=== PATIENT | male | born 1950 | race African-American/Black ===

== ENCOUNTER 2016-06-01 20:58 | Observation (INO) | payer MEDICARE ==
[~2016-06-01 20:58] MED LIST: AMIO200 PO; ASPI81TA82 PO; ENAL10TA7 PO; GLUCTAB PO; METO50TA PO; PLAV75TA PO; SIMV5TAB3 PO
[2016-06-01 21:00] VITALS: BP 122/65; PULSE 66; PULSE 67; RESP 16; RESP 18; TEMP 97.7; O2SAT 100
[2016-06-01] MEDS ORDERED: SODIUM CHLORIDE 0.9% FLUSH 5 ML FLUSH IVF PRN (21:15)
--- NOTE | 2016-06-01 21:21 | PD ---
HPI Chief Complaint: AICD Discharge Time Seen by Provider: 21:04 Travel History International Travel<30 days: No Contact w/Intl Traveler<30days: No History of Present Illness HPI Patient is 66 years old and arrives to the ER after his AICD defibrillated while he was sitting on his couch just prior to ER arrival. He did experience some lightheadedness for a few seconds prior to defibrillation. Since the defibrillation he has had no complaint. He felt one discharged. Today was a normal day for the patient without excessive exercise/exertion. No shortness of breath or cough or fever reported. He has a history of catheterization August 2015 when drug-eluting stents were placed in the LAD by Dr. Malik. Pt ferrell has a Medtronic AICD which was last interrogated here about 9 months prior when of ventricular tachycardia with rate of 240 was observed. PFSH Past Medical History Hx Anticoagulant Therapy: Yes (Plavix) Arthritis: No Heart Rhythm Problems: Yes Cancer: No Cardiac Catheterization: Yes (STENT X2) Cardiovascular Problems: Yes (OK 2002) High Cholesterol: Yes Chemotherapy: No Chest Pain: No Congestive Heart Failure: No Cerebrovascular Accident: No Diabetes: Yes Endocrine: No Gastrointestinal Disorders: No Genitourinary: No Hypertension: Yes Immune Disorder: No Implanted Vascular Access Dvce: Yes Musculoskeletal: No Neurologic: No Psychiatric: No Reproductive: Yes (penile implant) Respiratory: No Myocardial Infarction: Yes (STENT X 2) Past Surgical History Abdominal Surgery: No AICD: Yes Arteriovenous Shunt: No Cardiac Surgery: Yes (DEFIBRILLATOR, STENTS) Ear Surgery: No Endocrine Surgery: No Eye Surgery: No Genitourinary Surgery: Yes (penis implant) Gynecologic Surgery: No Insulin Pump: No Joint Replacement: No Neurologic Surgery: No Oral Surgery: No Pacemaker: Yes Thoracic Surgery: No Other Surgery: Yes (PENILE IMPLANT) Social History Alcohol Use: No Tobacco Use: No Substance Use: No Allergies-Medications (Allergen,Severity, Reaction): Coded Allergies: No Known Allergies (Unverified , 06/01/16) Reported Meds & Prescriptions Reported Meds & Active Scripts Active Review of Systems Except as stated in HPI: all other systems reviewed are Neg Physical Exam Narrative GENERAL: 66 yo M, WNWD, NAD SKIN: Warm and dry. HEAD: Atraumatic. Normocephalic. EYES: Pupils equal and round. No scleral icterus. No injection or drainage. ENT: No nasal bleeding or discharge. Mucous membranes pink and moist. NECK: Trachea midline. No JVD. CARDIOVASCULAR: Irregular. HR approx 72. RESPIRATORY: No accessory muscle use. Clear to auscultation. Breath sounds equal bilaterally. GASTROINTESTINAL: Abdomen soft, non-tender, nondistended. Hepatic and splenic margins not palpable. MUSCULOSKELETAL: Extremities without clubbing, cyanosis, or edema. No obvious deformities. NEUROLOGICAL: Awake and alert. No obvious cranial nerve deficits. Motor grossly within normal limits. Five out of 5 muscle strength in the arms and legs. Normal speech. PSYCHIATRIC: Appropriate mood and affect; insight and judgment normal. Data Data Last Documented VS Vital Signs Date Time Temp Pulse Resp B/P Pulse Ox O2 Delivery O2 Flow Rate FiO2 06/01/16 21:00 97.7 66 18 122/65 100 06/01/16 21:00 Room Air Orders Electrocardiogram (06/01/16 21:04) Basic Metabolic Panel (Bmp) (06/01/16 21:04) Ckmb (Isoenzyme) Profile (06/01/16 21:04) Complete Blood Count With Diff (06/01/16 21:04) Magnesium (Mg) (06/01/16 21:04) Prothrombin Time / Inr (Pt) (06/01/16 21:04) Act Partial Throm Time (Ptt) (06/01/16 21:04) Troponin I (06/01/16 21:04) Ecg Monitoring (06/01/16 21:04) Bilateral Bp Monitoring (06/01/16 21:04) Iv Access Insert/Monitor (06/01/16 21:04) Oximetry (06/01/16 21:04) Oxygen Administration (06/01/16 21:04) Sodium Chloride 0.9% Flush (Ns Flush) (06/01/16 21:15) CKMB (06/01/16 21:15) CKMB% (06/01/16 21:15) Admit Order (Ed Use Only) (06/01/16 23:44) Labs Laboratory Tests Test 06/01/16 21:15 White Blood Count 8.0 TH/MM3 Red Blood Count 4.70 MIL/MM3 Hemoglobin 13.7 GM/DL Hematocrit 41.8 % Mean Corpuscular Volume 89.0 FL Mean Corpuscular Hemoglobin 29.1 PG Mean Corpuscular Hemoglobin 32.7 % Concent Red Cell Distribution Width 13.9 % Platelet Count 194 TH/MM3 Mean Platelet Volume 8.8 FL Neutrophils (%) (Auto) 56.8 % Lymphocytes (%) (Auto) 29.4 % Monocytes (%) (Auto) 11.1 % Eosinophils (%) (Auto) 2.1 % Basophils (%) (Auto) 0.6 % Neutrophils # (Auto) 4.6 TH/MM3 Lymphocytes # (Auto) 2.4 TH/MM3 Monocytes # (Auto) 0.9 TH/MM3 Eosinophils # (Auto) 0.2 TH/MM3 Basophils # (Auto) 0.0 TH/MM3 CBC Comment DIFF FINAL Differential Comment Prothrombin Time 11.1 SEC Prothromb Time International 1.0 RATIO Ratio Activated Partial 29.9 SEC Thromboplast Time Sodium Level 140 MEQ/L Potassium Level 4.0 MEQ/L Chloride Level 105 MEQ/L Carbon Dioxide Level 27.6 MEQ/L Anion Gap 7 MEQ/L Blood Urea Nitrogen 13 MG/DL Creatinine 1.36 MG/DL Estimat Glomerular Filtration 63 ML/MIN Rate Random Glucose 114 MG/DL Calcium Level 8.2 MG/DL Magnesium Level 2.1 MG/DL Total Creatine Kinase 120 U/L Creatine Kinase MB 1.9 NG/ML Troponin I LESS THAN 0.02 NG/ML MDM Medical Decision Making Medical Screen Exam Complete: Yes Emergency Medical Condition: Yes Medical Record Reviewed: Yes Differential Diagnosis NSTEMI, unstable angina, coronary vasospasm, PE, PTX, aortic dissection, pericarditis, myocarditis, endocarditis, PNA, esophageal disease, aneurysm, musculoskeletal etiologies, anxiety, cocaine/sympathomimetic abuse Narrative Course CBC & BMP Diagram 06/01/16 21:15 Tn < 0.02 Magnesium 2.1 Coags 11.1 / 1.0 / 29.9 EK, electronic atrial PM, q waves V1-V6/III A Medtronic isotope technician perform the interrogation and we can see ventricular tachycardia at a rate of 270 twice in the last few weeks including tonight. The case was discussed with Dr. Olson of cardiology and the patient will be admitted for further evaluation. He did have a brief episode of ventricular tachycardia in the ER lasting a couple seconds and no defibrillation occurred. Discussed with Dr. Waggoner for [facility]. Diagnosis Primary Impression: AICD discharge Admitting Information Admitting Physician Requests: Observation Amarjit Olson MD Jun 01, 2016 21:21
[2016-06-01 21:28] LABS: AUTOMATED NEUTROPHIL # 4.6 TH/MM3 (1.8-7.7); BASOPHIL % 0.6 % (0.0-2.0); EOSINOPHIL # 0.2 TH/MM3 (0-0.4); EOSINOPHIL % 2.1 % (0.0-4.0); HEMATOCRIT 41.8 % (39.0-51.0); HEMO FLAGS DIFF FINAL; LYMPH % 29.4 % (9.0-44.0); LYMPHOCYTE # 2.4 TH/MM3 (1.0-4.8); MEAN CORPUSCULAR HEMOGLOBIN 29.1 PG (27.0-34.0); MEAN CORPUSCULAR HGB CONC 32.7 % (32.0-36.0); MONO % 11.1 % (0.0-8.0); NEUT % 56.8 % (16.0-70.0); PLATELET COUNT 194 TH/MM3 (150-450); RED CELL DISTRIBUTION WIDTH 13.9 % (11.6-17.2)
[2016-06-01 21:39] LABS: APTT (PATIENT) 29.9 SEC (24.3-30.1); PROTHROMBIN TIME - PATIENT 11.1 SEC (9.8-11.6)
[2016-06-01 21:59] LABS: ANION GAP 7 MEQ/L (5-15); BICARBONATE 27.6 MEQ/L (21.0-32.0); BLOOD UREA NITROGEN 13 MG/DL (7-18); CHLORIDE 105 MEQ/L (98-107); CREATINE KINASE 120 U/L (39-308); GLOMERULAR FILTRATION RATE 63 ML/MIN (>89); MAGNESIUM 2.1 MG/DL (1.5-2.5); SODIUM (NA) 140 MEQ/L (136-145)
[2016-06-01 22:12] LABS: CKMB 1.9 NG/ML (0.5-3.6)
--- NOTE | 2016-06-01 23:57 | HHI.HP ---
[facility] Service [facility] Primary Care Physician JEREMY Mensah Admission Diagnosis VTach/AICD Defibrillation Diagnoses: (1) AICD discharge Diagnosis: Principal (2) JONNY (acute kidney injury) Diagnosis: Principal (3) HTN (hypertension) Diagnosis: Principal (4) DM (diabetes mellitus) Diagnosis: Principal Travel History International Travel<30 Days: No Contact w/Intl Traveler <30 Da: No Traveled to Known Affected Are: No History of Present Illness This is a 66-year-old male with a PMH of HTN, CAD, CHF (EF 20%) s/p AICD ( Medtronic) and DM who came to the ER after AICD fired x1. Per , they had gotten home from dinner, pt fell asleep on the couch and after approx 20min woke up w/ AICD firing x1. Denies chest pain or SOB. Similar episode in 2015 for which he was admitted, s/p Cardiac Cath 08/27/15 w/ DE Stent x2 to LAD. states had episode of AICD firing in November as well. On arrival, BP 122/65 , HR 66, O2 sat 100% on RA, Afebrile. CBC unremarkable. Creatinine 1.36, previously 0.99 on 10/15/15. Troponin negative. AICD Interrogated by [employer] while in ER, s/p AICD firing x1. Dr. Olson consulted by ER physician, recommended admission for observation. Follows w/ Dr. Malik as outpatient, had medications adjusted and was referred to a specialist in [place]. Have appt w/ Dr. Almeida in [place] tomorrow morning at 10:30am. Pt reluctant to be admitted as he has appt tomorrow. Review of Systems Other ROS: 14 point review of systems otherwise negative. Past Family Social History Past Medical History PMH: HTN, CAD, CHF (EF 20%) s/p AICD (Medtronic) and DM Past Surgical History PAST SURGICAL HISTORY: AICD, Cardiac Stent, Penile Implant Allergies: Coded Allergies: No Known Allergies (Unverified , 06/01/16) Family History PAST FAMILY HISTORY: Reviewed. No h/o DM or CAD Social History PAST SOCIAL HISTORY: Negative for alcohol, tobacco or drugs. Physical Exam Vital Signs Vital Signs Date Time Temp Pulse Resp B/P Pulse Ox O2 Delivery O2 Flow Rate FiO2 06/01/16 21:00 97.7 66 18 122/65 100 06/01/16 21:00 67 16 100 Room Air 06/01/16 21:00 100 Room Air 06/01/16 21:00 67 16 100 Room Air Physical Exam PE: GENERAL: Middle-aged black male in no acute distress. at bedside. HEENT: PERRLA, EOMI. No scleral icterus or conjunctival pallor. No lid lag or facial droop. CARDIOVASCULAR: Regular rate and rhythm. No obvious murmurs to auscultation. No chest tenderness to palpation. RESPIRATORY: No obvious rhonchi or wheezing. Clear to auscultation. Breath sounds equal bilaterally. GASTROINTESTINAL: Abdomen soft, non-tender, nondistended. BS normal. MUSCULOSKELETAL: Extremities without clubbing, cyanosis, or edema. No obvious deformities. NEUROLOGICAL: Awake, alert and oriented x4. No focal neurologic deficits. Moving both upper and lower extremities spontaneously. Laboratory Laboratory Tests Test 06/01/16 21:15 White Blood Count 8.0 Red Blood Count 4.70 Hemoglobin 13.7 Hematocrit 41.8 Mean Corpuscular Volume 89.0 Mean Corpuscular Hemoglobin 29.1 Mean Corpuscular Hemoglobin 32.7 Concent Red Cell Distribution Width 13.9 Platelet Count 194 Mean Platelet Volume 8.8 Neutrophils (%) (Auto) 56.8 Lymphocytes (%) (Auto) 29.4 Monocytes (%) (Auto) 11.1 Eosinophils (%) (Auto) 2.1 Basophils (%) (Auto) 0.6 Neutrophils # (Auto) 4.6 Lymphocytes # (Auto) 2.4 Monocytes # (Auto) 0.9 Eosinophils # (Auto) 0.2 Basophils # (Auto) 0.0 CBC Comment DIFF FINAL Differential Comment Prothrombin Time 11.1 Prothromb Time International 1.0 Ratio Activated Partial 29.9 Thromboplast Time Sodium Level 140 Potassium Level 4.0 Chloride Level 105 Carbon Dioxide Level 27.6 Anion Gap 7 Blood Urea Nitrogen 13 Creatinine 1.36 Estimat Glomerular Filtration 63 Rate Random Glucose 114 Calcium Level 8.2 Magnesium Level 2.1 Total Creatine Kinase 120 Creatine Kinase MB 1.9 Troponin I LESS THAN 0.02 Result Diagram: 06/01/16211406/01/162114 Assessment and Plan Problem List: (1) AICD discharge ICD Code: Z45.02 Status: Acute (2) JONNY (acute kidney injury) ICD Code: N17.9 Status: Acute (3) HTN (hypertension) ICD Code: I10 Status: Acute (4) DM (diabetes mellitus) ICD Code: E11.9 Status: Acute Assessment and Plan A/P: 1. AICD Discharge: s/p firing x1 tonight, s/p AICD Interrogation by [employer] confirming discharge. Follows w/ Dr. Malik as outpatient, pt states medications were adjusted and pt referred to [place] for eval w/ specialist. Have appt w/ Dr. Almeida in [place] tomorrow morning at 10:30. Pt reluctant to be admitted as he doesn't want to miss appt. Will admit for Observation, place on telemetry, check serial enzymes to eval for possible ischemia. Consult Dr. Malik for further recommendations. Resume home Metoprolol 100mg bid, Enalapril 5mg bid and Amiodarone 200mg qd. 2. JONNY: Creatinine 1.36, previously 0.99 on 10/15/15. IVF, repeat labs in am. 3. DM: Sliding scale w/ Accu-checks. 4. HTN: Controlled. Resume home Metoprolol/Enalapril. 5. DVT Prophylaxis: SCD/Teds. 6. Social work for d/c planning as needed. 7. Case discussed w/ ER physician at length. Jennifer Waggoner MD Jun 01, 2016 23:57
[2016-06-02] MEDS ORDERED: ASPIRIN EC 81 MG TABEC PO ONE (00:15)
[2016-06-02] MEDS ORDERED: ONDANSETRON HCL 4 MG/2 ML VIAL IVP PRN (00:15)
[2016-06-02] MEDS ORDERED: SODIUM CHLORIDE 0.9% FLUSH 5 ML FLUSH FLUSH PRN (00:15)
[2016-06-02] MEDS ORDERED: ACETAMINOPHEN/HYDROcodone 325 MG/5 MG TAB PO PRN (00:15)
[2016-06-02] MEDS ORDERED: METOPROLOL TARTRATE 100 MG TAB PO SCH (00:15)
[2016-06-02] MEDS ORDERED: GLUCAGON 1 MG/ML VIAL OTHER PRN (00:15)
[2016-06-02] MEDS ORDERED: ACETAMINOPHEN 325 MG TAB PO PRN (00:15)
[2016-06-02] MEDS ORDERED: BISACODYL 10 MG SUPP PR PRN (00:15)
[2016-06-02] MEDS ORDERED: DEXTROSE 50% IN WATER 50 ML VIAL(D50) IV PUSH PRN (00:15)
[2016-06-02] MEDS ORDERED: MORPHINE SULFATE 4 MG/ML INJ IV PRN (00:15)
[2016-06-02 00:53] VITALS: BP 117/63; PULSE 67; RESP 16; O2SAT 100
[2016-06-02] MEDS ORDERED: CLOP75TA PO (01:41)
[2016-06-02] MEDS ORDERED: ENAL5TAB PO (01:41)
[2016-06-02] MEDS ORDERED: METF500T PO (01:41)
[2016-06-02] MEDS ORDERED: METO100T PO (01:41)
[2016-06-02] MEDS ORDERED: AMIO200T PO (01:41)
[2016-06-02] MEDS: AMIODARONE 200 MG TAB PO SCH ×3 (02:01→21:43)
[2016-06-02] MEDS: SODIUM CHLOR 0.9% 1000 ML INJ 1,000 ML IV SCH ×3 (02:01→21:45)
[2016-06-02] MEDS: ENALAPRIL MALEATE 5 MG TAB PO SCH ×3 (02:02→21:43)
[2016-06-02 04:52] VITALS: BP 132/84; PULSE 59; RESP 16; O2SAT 99
[2016-06-02] MEDS: INSULIN ASPART SUPPLEMENTAL SCALE SQ SCH ×4 (07:00→21:00)
[2016-06-02] MEDS: METOPROLOL TARTRATE 100 MG TAB PO SCH ×2 (10:43→21:43)
[2016-06-02] MEDS: SODIUM CHLORIDE 0.9% FLUSH 5 ML FLUSH FLUSH SCH ×2 (10:44→21:00)
[2016-06-02 13:00] VITALS: BP 145/88; PULSE 61; RESP 18; TEMP 95.9; O2SAT 97
[2016-06-02 13:18] VITALS: PULSE 58
[2016-06-02 16:07] VITALS: BP 118/67; PULSE 60; RESP 18; TEMP 96; O2SAT 98
--- NOTE | 2016-06-02 17:19 | EKG ---
Date Performed: 06/01/2016 Time Performed: 21:03:29 PTAGE: 66 years EKG: ELECTRONIC ATRIAL PACEMAKER POSSIBLE ANTERIOR MYOCARDIAL INFARCTION Compared to prior emmy ng no significant change ABNORMAL RHYTHM ECG PREVIOUS TRACING 10/13/15 @16.30.42 DOCTOR: Chad Espinoza Interpretating Date/Time 06/02/2016 17:18:16
--- NOTE | 2016-06-02 18:59 | HHI.PR ---
Subjective Remarks going to the bathroom=- no chest pains or shortness of breath- d/w to pace himself telemetry- sinus patient states came here last evening at around 11 pm- fired x 1 while he was just resting no chest pain, SOB,Nausea or vomtiing Objective Vitals Vital Signs Date Time Temp Pulse Resp B/P Pulse Ox O2 Delivery O2 Flow Rate FiO2 06/02/16 16:07 96.0 60 18 118/67 98 06/02/16 13:18 58 06/02/16 13:00 95.9 61 18 145/88 97 06/02/16 04:52 59 16 132/84 99 Room Air 06/02/16 00:53 67 16 117/63 100 Room Air 06/01/16 21:00 97.7 66 18 122/65 100 06/01/16 21:00 67 16 100 Room Air 06/01/16 21:00 100 Room Air 06/01/16 21:00 67 16 100 Room Air I/O 06/01/16 06/01/16 06/01/16 06/02/16 06/02/16 06/02/16 07:00 15:00 23:00 07:00 15:00 23:00 Intake Total 200 ml Balance 200 ml Intake IV Total 200 ml Result Diagram: 06/01/16211406/01/162114 Objective Remarks awake, alert, oriented x 3 anicteric l;ungs clear, no rales or wheezes regular rhythm HR 62 abdomen soft, extremities no edema A/P Problem List: (1) AICD discharge ICD Code: Z45.02 Status: Acute (2) JONNY (acute kidney injury) ICD Code: N17.9 Status: Acute (3) HTN (hypertension) ICD Code: I10 Status: Acute (4) DM (diabetes mellitus) ICD Code: E11.9 Status: Acute Assessment and Plan A/P: 1. AICD Discharge: s/p firing x1 06/01. History of cardiomyopathy s/p AICD Interrogation by [employer] confirming discharge. Resume home Metoprolol 100mg bid, Enalapril 5mg bid and Amiodarone 200mg qd. Patient was seen today by Dr. Rowe - further course of work up per Dr. Rowe. Restart his Plavix. 2. JONNY: Creatinine 1.36, previously 0.99 on 10/15/15. IVF gentle hydration decreased IVF rate with history of CMP. repeat labs in am. 3. DM: Sliding scale w/ Accu-checks. Hold Metformin with elevated creatinine. check hemoglobin A1C in am 4. HTN: Controlled. Resume home Metoprolol/Enalapril. 5. DVT Prophylaxis: SCD/Teds. 6. Social work for d/c planning as needed. 7. Case discussed and patient at bedside Heparin SQ for DVT prophylaxis Dylan Li MD Jun 02, 2016 18:59 Dylan Li MD Jun 02, 2016 18:59
[2016-06-02 21:14] VITALS: BP 140/78; PULSE 62; RESP 20; TEMP 98.3; O2SAT 100
[2016-06-03 00:03] VITALS: BP 131/75; PULSE 62; RESP 20; TEMP 97.8; O2SAT 95
[2016-06-03 01:41] VITALS: PULSE 59
[2016-06-03 04:08] VITALS: BP 138/86; PULSE 59; RESP 20; TEMP 97.8; O2SAT 95
[2016-06-03] MEDS: INSULIN ASPART SUPPLEMENTAL SCALE SQ SCH (06:31)
--- NOTE | 2016-06-03 07:49 | MB ---
cc: SOTERO LEDBETTER HANSCY M.D. WILSON, VANCE E. M.D. DATE OF CONSULTATION 06/02/2016 REASON FOR CONSULTATION Ventricular tachycardia. HISTORY OF PRESENT ILLNESS Mr. Gutierrez is a 66-year-old -Spanish gentleman with history of high blood pressure, coronary artery disease, previous PTCA plus stent that was in August 10, 2015, that was the last one, previous defibrillatory shock in November. The gentleman was admitted due to defibrillatory shock. He was evaluated. Medication was modified and subsequently yesterday night was at home and felt dizzy and came to the emergency room. Defibrillatory shock due to ventricular tachycardia recorded. The patient has had two or three episodes. There was an early episode around May 19 that the patient does not really remember at this point. I was consulted for further evaluation and management. The chart was reviewed. The patient was evaluated. ALLERGIES None. SOCIAL HISTORY Negative for smoking and drinking. FAMILY HISTORY Noncontributory to his current medical management. MEDICATIONS The patient currently is on - 1. Metoprolol 100 mg twice a day. 2. He is on enalapril 5 mg twice a day. 3. He is on amiodarone 200 mg twice a day. REVIEW OF SYSTEMS Currently he refers no chest pain, no chest discomfort, no vomiting, no fever. PHYSICAL EXAMINATION General: Alert, fully oriented. Vital Signs: His blood pressure is 118/67, pulse 60, respiratory 18. Lungs: Ventilated. Cardiovascular: S1, S2. No gallop, no murmur. Abdomen: Soft. No mass. No bruit. Extremities: No edema. ELECTROCARDIOGRAM Sinus rhythm, diffuse ST changes. LABORATORY DATA Hemoglobin is 13.7, white blood cell count 8.0. Potassium 4.0, creatinine 1.36. Troponin 0.02. INR 1.0. ASSESSMENT AND RECOMMENDATIONS Interrogation of the defibrillator by [employer] indicates multiple defibrillatory shocks. The shocks were appropriate. The gentleman is on multiple medications, is on amiodarone, is on beta-roderick. He is a Christian. If there is any bleeding or complication during any procedure, the patient is not accepting blood. Due to the high risk of the patient and the risk for bleeding or perforation during ventricular tachycardia ablation, this procedure is not currently an option except if the patient is in a VT storm and the family understands the complexity of that. At this point he is on metoprolol and amiodarone. If necessary mexiletine can be added. My recommendation is to continue with current management. If the patient is stable in the morning, can be discharged home and followed up with his sweeper brush maker machine in [place] or Dr. Malik in [facility]. I will see him if necessary. Raudel Rowe MD HS/SSB /6:13 PM /7:36 AM
[2016-06-03 08:00] VITALS: BP 142/83; PULSE 60; RESP 20; TEMP 97.7; O2SAT 97
[2016-06-03] MEDS ORDERED: CLOPIDOGREL 75 MG TAB PO SCH (09:00)
[2016-06-03] MEDS ORDERED: AMIO200T PO (09:12)
--- NOTE | 2016-06-03 09:16 | HHI.DCPOC ---
Discharge Care Plan Diagnosis: (1) AICD discharge Goals to Promote Your Health * To prevent worsening of your condition and complications * To maintain your health at the optimal level Directions to Meet Your Goals Take your medications as prescribed Follow your dietary instruction Follow activity as directed Keep your appointments as scheduled Take your immunizations and boosters as scheduled If your symptoms worsen call your PCP, if no PCP go to Urgent Care Center or Emergency Room Smoking is Dangerous to Your Health. Avoid second hand smoke Call the 24-hour hour crisis hotline for domestic abuse at Narda Renteria PA-C Jun 03, 2016 09:16 Janee Petty MD Jun 03, 2016 23:29
[2016-06-03] MEDS: AMIODARONE 200 MG TAB PO SCH (09:25)
[2016-06-03] MEDS: METOPROLOL TARTRATE 100 MG TAB PO SCH (09:25)
[2016-06-03] MEDS: ENALAPRIL MALEATE 5 MG TAB PO SCH (09:25)
[2016-06-03] MEDS: SODIUM CHLORIDE 0.9% FLUSH 5 ML FLUSH FLUSH SCH (09:25)
--- NOTE | 2016-06-03 09:44 | PD.CARD.PN ---
Subjective Subjective Remarks No complaints, no dizziness or recurrent shocks overnight. Objective Medications Current Medications Medications (Trade) Dose Ordered Sig/Trang Route Start Time Stop Time Status Last Admin (NS 1000 ml Inj) 1,000 ml @ 30 mls/hr Q24H IV 06/02/16 00:09 06/02/16 21:45 (NS Flush) 2 ml UNSCH PRN FLUSH 06/02/16 00:15 (NS Flush) 2 ml BID FLUSH 06/02/16 09:00 06/02/16 10:44 (Zofran Inj) 4 mg Q6H PRN IVP 06/02/16 00:15 (Dulcolax Supp) 10 mg DAILY PRN OK 06/02/16 00:15 (Tylenol) 650 mg Q6H PRN PO 06/02/16 00:15 ([place] 5-325 Mg) 1 tab Q4H PRN PO 06/02/16 00:15 (Morphine Inj) 2 mg Q3H PRN IV 06/02/16 00:15 (D50w (Vial) Inj) 25 ml UNSCH PRN IV PUSH 06/02/16 00:15 (Glucagon Inj) 1 mg UNSCH PRN OTHER 06/02/16 00:15 (Vasotec) 5 mg BID PO 06/02/16 00:15 06/03/16 09:25 (Cordarone) 200 mg Q12HR PO 06/02/16 00:15 06/03/16 09:25 (Lopressor) 100 mg Q12HR PO 06/02/16 09:00 06/03/16 09:25 (Plavix) 75 mg DAILY PO 06/03/16 09:00 06/03/16 09:25 Vital Signs / I&O Vital Signs Date Time Temp Pulse Resp B/P Pulse Ox O2 Delivery O2 Flow Rate FiO2 06/03/16 08:00 97.7 60 20 142/83 97 06/03/16 04:08 97.8 59 20 138/86 95 06/03/16 01:41 59 06/03/16 00:03 97.8 62 20 131/75 95 06/02/16 21:14 98.3 62 20 140/78 100 06/02/16 16:07 96.0 60 18 118/67 98 06/02/16 13:18 58 06/02/16 13:00 95.9 61 18 145/88 97 I/O 06/02/16 06/02/16 06/02/16 06/03/16 06/03/16 06/03/16 07:00 15:00 23:00 07:00 15:00 23:00 Intake Total 200 ml Balance 200 ml Intake IV Total 200 ml # Voids 1 Physical Exam GENERAL: Well-nourished, well-developed patient. SKIN: Warm and dry. HEAD: Normocephalic. EYES: No scleral icterus. No injection or drainage. NECK: Supple, trachea midline. No JVD or lymphadenopathy. CARDIOVASCULAR: Regular rate and rhythm without murmurs, gallops, or rubs. RESPIRATORY: Breath sounds equal bilaterally. No accessory muscle use. GASTROINTESTINAL: Abdomen soft, non-tender, nondistended. EXTREMITIES: No cyanosis, or edema. NEUROLOGICAL: Awake, alert, and oriented x 3. Non-focal. Laboratory Laboratory Tests Test 06/02/16 10:54 Troponin I 0.02 NG/ML Assessment and Plan Problem List: (1) AICD discharge Assessment and Plan: No recurrence overnight per tele review and d/w patient. (2) Ventricular fibrillation Assessment and Plan: No events on tele review. Per my d/w Dr. Rowe, he can be discharged home with outpatient f/u with Dr. Stew Malik and his manager financial reporting in [place], Dr. Almeida. Discussed Condition With IJEOMA pt., Dr. Rowe. Alicia Arzate Jun 03, 2016 09:44
--- NOTE | 2016-06-03 10:21 | HHI.PR ---
Subjective Remarks Follow up for VT with AICD discharge. The patient reports no further events overnight. No chest pain or shortness of breath. He has been cleared by cardiology. The patient is looking forward to going home. He has no other medical complaints at this time. Objective Vitals Vital Signs Date Time Temp Pulse Resp B/P Pulse Ox O2 Delivery O2 Flow Rate FiO2 06/03/16 08:00 97.7 60 20 142/83 97 06/03/16 04:08 97.8 59 20 138/86 95 06/03/16 01:41 59 06/03/16 00:03 97.8 62 20 131/75 95 06/02/16 21:14 98.3 62 20 140/78 100 06/02/16 16:07 96.0 60 18 118/67 98 06/02/16 13:18 58 06/02/16 13:00 95.9 61 18 145/88 97 I/O 06/02/16 06/02/16 06/02/16 06/03/16 06/03/16 06/03/16 07:00 15:00 23:00 07:00 15:00 23:00 Intake Total 200 ml Balance 200 ml Intake IV Total 200 ml # Voids 1 Result Diagram: 06/01/16211406/01/162114 Objective Remarks GENERAL: Well-nourished, well-developed male patient in [facility]. SKIN: Warm and dry. No rash. HEAD: Normocephalic. Atraumatic. NECK: Supple. Trachea midline. CARDIOVASCULAR: Regular rate and rhythm. S1, S2 noted. No murmur appreciated. RESPIRATORY: No accessory muscle use. Clear to auscultation. Breath sounds equal bilaterally. GASTROINTESTINAL: Abdomen soft, non-tender, nondistended. Normoactive bowel sounds x4. MUSCULOSKELETAL: No obvious deformities. Extremities without clubbing, cyanosis , or edema. NEUROLOGICAL: Awake and alert. No obvious cranial nerve deficits. Motor grossly within normal limits. Normal speech. PSYCHIATRIC: Appropriate mood and affect; insight and judgment normal. Medications and IVs Current Medications Medications (Trade) Dose Ordered Sig/Trang Route Start Time Stop Time Status Last Admin (NS 1000 ml Inj) 1,000 ml @ 30 mls/hr Q24H IV 06/02/16 00:09 06/02/16 21:45 (NS Flush) 2 ml UNSCH PRN FLUSH 1/23/17 00:15 (NS Flush) 2 ml BID FLUSH 06/02/16 09:00 06/02/16 10:44 (Zofran Inj) 4 mg Q6H PRN IVP 06/02/16 00:15 (Dulcolax Supp) 10 mg DAILY PRN AR 06/02/16 00:15 (Tylenol) 650 mg Q6H PRN PO 06/02/16 00:15 ([place] 5-325 Mg) 1 tab Q4H PRN PO 06/02/16 00:15 (Morphine Inj) 2 mg Q3H PRN IV 06/02/16 00:15 (D50w (Vial) Inj) 25 ml UNSCH PRN IV PUSH 06/02/16 00:15 (Glucagon Inj) 1 mg UNSCH PRN OTHER 06/02/16 00:15 (Vasotec) 5 mg BID PO 06/02/16 00:15 06/03/16 09:25 (Cordarone) 200 mg Q12HR PO 06/02/16 00:15 06/03/16 09:25 (Lopressor) 100 mg Q12HR PO 06/02/16 09:00 06/03/16 09:25 (Plavix) 75 mg DAILY PO 06/03/16 09:00 06/03/16 09:25 Urinary Catheter: No Vascular Central Line Catheter: No A/P Problem List: (1) AICD discharge ICD Code: Z45.02 Status: Acute (2) JONNY (acute kidney injury) ICD Code: N17.9 Status: Acute (3) HTN (hypertension) ICD Code: I10 Status: Acute (4) DM (diabetes mellitus) ICD Code: E11.9 Status: Acute Assessment and Plan 66-year-old male with: AICD Discharge: s/p firing x1 06/01. History of cardiomyopathy s/p AICD Interrogation by [employer] confirming discharge. Resume home Metoprolol 100mg bid, Enalapril 5mg bid and Amiodarone 200mg, and Plavix. Patient was seen cardiology Dr. Rowe, ok to discharge on current medications, plan to f/up with his citrix administrator Dr. Stew Malik and his information management manager in [place], Dr. Almeida. JONNY: Creatinine 1.36, previously 0.99 on 10/15/15. IVF gentle hydration. Repeat labs pending. DM: Sliding scale w/ Accu-checks. Hold Metformin with elevated creatinine. Checking hemoglobin A1C. HTN: Controlled. Resume home Metoprolol/Enalapril. DVT Prophylaxis: SCD/Teds. Written by Narda Renteria, acting as scribe for Dr. Petty on 06/03/16 at 09:10. The documentation accurately reflects the work performed [id number] by id Dr. Petty on 06/03/16 at 09:10. Discharge Planning Discharge patient to home Condition on discharge: Improved Heart Healthy/Diabetic Diet as tolerated Ad Amanda activity Rx written: Follow-up with primary care physician, citrix administrator Dr. Malik, and information management manager in [place]. Narda Renteria PA-C Jun 03, 2016 10:21 Janee Petty MD Jun 03, 2016 23:29
[2016-06-03 10:53] LABS: AUTOMATED NEUTROPHIL # 7.6 TH/MM3 (1.8-7.7); BASOPHIL % 0.3 % (0.0-2.0); EOSINOPHIL # 0.2 TH/MM3 (0-0.4); EOSINOPHIL % 2.1 % (0.0-4.0); HEMATOCRIT 42.5 % (39.0-51.0); HEMO FLAGS DIFF FINAL; LYMPH % 12.8 % (9.0-44.0); LYMPHOCYTE # 1.3 TH/MM3 (1.0-4.8); MEAN CORPUSCULAR HGB CONC 32.6 % (32.0-36.0); MONO % 10.1 % (0.0-8.0); NEUT % 74.7 % (16.0-70.0); PLATELET COUNT 198 TH/MM3 (150-450); RED BLOOD COUNT 4.78 MIL/MM3 (4.50-5.90); RED CELL DISTRIBUTION WIDTH 14.1 % (11.6-17.2); WHITE BLOOD COUNT 10.2 TH/MM3 (4.0-11.0)
[2016-06-03 11:25] LABS: ALT (GPT) 25 U/L (12-78); ANION GAP 8 MEQ/L (5-15); AST (GOT) 12 U/L (15-37); BICARBONATE 25.4 MEQ/L (21.0-32.0); BLOOD UREA NITROGEN 12 MG/DL (7-18); CHLORIDE 105 MEQ/L (98-107); GLOMERULAR FILTRATION RATE 81 ML/MIN (>89); SODIUM (NA) 138 MEQ/L (136-145)
[2016-06-03 11:27] LABS: ALKALINE PHOSPHATASE 57 U/L (45-117); TOTAL BILIRUBIN ADULT 0.7 MG/DL (0.2-1.0)
[2016-06-03 17:45] LABS: HEMOGLOBIN A1b 1.7 %; HEMOGLOBIN Ao 84.3 %; HEMOGLOBIN LA1C 2.3 %
== END 2016-06-03 11:03 | disposition home or self-care (01) ==
LOC: NEPC 20:58 → NEDA 23:49 → NEDH 06-02 05:11 → NEPFCDU 06-02 12:19
PROVIDERS: ADMIT Hospitalist; ATTEND Hospitalist
DX: T82.198A Other mechanical complication of other cardiac electronic device, initial encounter (principal); I49.01 Ventricular fibrillation; I47.2 Ventricular tachycardia; N17.9 Acute kidney failure, unspecified; I25.10 Atherosclerotic heart disease of native coronary artery without angina pectoris; I42.9 Cardiomyopathy, unspecified; I50.9 Heart failure, unspecified; I10 Essential (primary) hypertension; E11.9 Type 2 diabetes mellitus without complications; E78.00 Pure hypercholesterolemia, unspecified; I25.2 Old myocardial infarction; Z79.84 Long term (current) use of oral hypoglycemic drugs
CPT/HCPCS: 80048; 80053; 82550; 82552; 82948; 83036; 83735; 84484; 85025; 85610; 85730; 93005; 99285; G0378; J1815; J7030

== ENCOUNTER 2016-06-04 21:56 | Observation (INO) | payer MEDICARE ==
[~2016-06-04 21:56] MED LIST changes: -AMIO200 PO; +AMIO200T PO; -ASPI81TA82 PO; +CLOP75TA PO; -ENAL10TA7 PO; +ENAL5TAB PO; -GLUCTAB PO; +METO100T PO; -METO50TA PO; -PLAV75TA PO; -SIMV5TAB3 PO
[2016-06-04 22:05] VITALS: BP 134/65; PULSE 65; RESP 15; TEMP 98.9; O2SAT 97
[2016-06-04 22:15] VITALS: BP 128/74; PULSE 67; RESP 16; O2SAT 98
[2016-06-04 22:36] LABS: AUTOMATED NEUTROPHIL # 3.8 TH/MM3 (1.8-7.7); BASOPHIL % 0.7 % (0.0-2.0); EOSINOPHIL # 0.2 TH/MM3 (0-0.4); EOSINOPHIL % 2.4 % (0.0-4.0); HEMATOCRIT 41.9 % (39.0-51.0); HEMO FLAGS DIFF FINAL; LYMPH % 27.2 % (9.0-44.0); LYMPHOCYTE # 1.8 TH/MM3 (1.0-4.8); MEAN CELL VOLUME 88.1 FL (80.0-100.0); MEAN CORPUSCULAR HEMOGLOBIN 29.8 PG (27.0-34.0); MEAN CORPUSCULAR HGB CONC 33.8 % (32.0-36.0); MONO % 13.7 % (0.0-8.0); PLATELET COUNT 195 TH/MM3 (150-450); RED BLOOD COUNT 4.76 MIL/MM3 (4.50-5.90); RED CELL DISTRIBUTION WIDTH 13.9 % (11.6-17.2); WHITE BLOOD COUNT 6.7 TH/MM3 (4.0-11.0)
--- NOTE | 2016-06-04 22:53 | RADRPT ---
EXAM DATE/TIME: 06/04/2016 22:35 [facility] COMPARISON: CHEST PA & LAT, August 28, 2015, 10:29. CHEST SINGLE AP, August 12, 2015, 22:02. INDICATIONS : Pacemaker activated. MEDICAL HISTORY : Cardiovascular disease. SURGICAL HISTORY : Pacemaker. Cardiac cath. ENCOUNTER: Initial ACUITY: 1 day PAIN SCORE: 0/10 LOCATION: chest FINDINGS: A single view of the chest demonstrates the lungs to be symmetrically aerated without evidence of mas s, infiltrate or effusion. The left subclavian AICD device remains in place. The cardiomediastinal c ontours are unremarkable. Osseous structures are intact. CONCLUSION: No acute disease. Som Gregg MD on June 04, 2016 at 22:49 Board Certified Radiologist. This report was verified electronically.
[2016-06-04 22:59] LABS: ANION GAP 10 MEQ/L (5-15); AST (GOT) 11 U/L (15-37); BICARBONATE 24.6 MEQ/L (21.0-32.0); BLOOD UREA NITROGEN 18 MG/DL (7-18); CHLORIDE 107 MEQ/L (98-107); GLOMERULAR FILTRATION RATE 50 ML/MIN (>89); SODIUM (NA) 142 MEQ/L (136-145)
[2016-06-04 23:04] LABS: ALKALINE PHOSPHATASE 58 U/L (45-117); ALT (GPT) 23 U/L (12-78); TOTAL BILIRUBIN ADULT 0.3 MG/DL (0.2-1.0)
[2016-06-05] VITALS (7 sets, daily range): BP systolic 114–152; BP diastolic 61–85; PULSE 58–60; RESP 15–22; TEMP 98; O2SAT 98–100
--- NOTE | 2016-06-05 00:11 | PD ---
HPI Chief Complaint: Academic Advisor Problem Time Seen by Provider: 22:10 Travel History International Travel<30 days: No Contact w/Intl Traveler<30days: No History of Present Illness HPI Says 66-year-old male presents emergency department because his AICD fired 30 minutes before arrival. His a history of cardiomyopathy with an EF of 20%, Medtronic AICD, he follows with Dr. Stew Malik, and with an bench assembly inspector in [place]. He was just discharged yesterday after he was admitted for his AICD firing. He reports he just his amiodarone dose. Other than This he had not had trouble with the firing since October of last year. States he otherwise has been feeling well. No chest pain. No trouble breathing. No other complaints. History Past Medical History Narrative Medical Cardiomyopathy, EF 20%, Medtronic AICD Diabetes Hypertension CAD Tetanus Vaccination: Unknown Influenza Vaccination: No Social History Alcohol Use: No Tobacco Use: No Allergies-Medications (Allergen,Severity, Reaction): Coded Allergies: No Known Allergies (Unverified , 06/04/16) Reported Meds & Prescriptions Reported Meds & Active Scripts Active Amiodarone (Amiodarone HCl) 200 Mg Tab 200 Mg PO Q12HR Reported Metoprolol Tartrate 100 Mg Tab 100 Mg PO BID Enalapril (Enalapril Maleate) 5 Mg Tab 5 Mg PO BID Clopidogrel (Clopidogrel Bisulfate) 75 Mg Tab 75 Mg PO DAILY Review of Systems Except as stated in HPI: all other systems reviewed are Neg Physical Exam Narrative GENERAL: Well-appearing 66-year-old man, no acute distress. SKIN: Warm and dry. HEAD: Atraumatic. Normocephalic. EYES: Pupils equal and round. No scleral icterus. No injection or drainage. ENT: No nasal bleeding or discharge. Mucous membranes pink and moist. NECK: Trachea midline. No JVD. CARDIOVASCULAR: Regular rate and rhythm. No murmur appreciated. RESPIRATORY: No accessory muscle use. Clear to auscultation. Breath sounds equal bilaterally. GASTROINTESTINAL: Abdomen soft, non-tender, nondistended. Hepatic and splenic margins not palpable. MUSCULOSKELETAL: No obvious deformities. No edema. NEUROLOGICAL: Awake and alert. No obvious cranial nerve deficits. Motor grossly within normal limits. Normal speech. Data Data Last Documented VS Vital Signs Date Time Temp Pulse Resp B/P Pulse Ox O2 Delivery O2 Flow Rate FiO2 06/04/16 22:15 67 16 128/74 98 Room Air 06/04/16 22:05 98.9 Orders Complete Blood Count With Diff (06/04/16 22:19) Comprehensive Metabolic Panel (06/04/16 22:19) Troponin I (06/04/16 22:19) Iv Access Insert/Monitor (06/04/16 22:19) Chest, Single Ap (06/04/16 ) Admit Order (Ed Use Only) (06/05/16 ) Labs Laboratory Tests Test 06/04/16 22:23 White Blood Count 6.7 TH/MM3 Red Blood Count 4.76 MIL/MM3 Hemoglobin 14.2 GM/DL Hematocrit 41.9 % Mean Corpuscular Volume 88.1 FL Mean Corpuscular Hemoglobin 29.8 PG Mean Corpuscular Hemoglobin 33.8 % Concent Red Cell Distribution Width 13.9 % Platelet Count 195 TH/MM3 Mean Platelet Volume 9.0 FL Neutrophils (%) (Auto) 56.0 % Lymphocytes (%) (Auto) 27.2 % Monocytes (%) (Auto) 13.7 % Eosinophils (%) (Auto) 2.4 % Basophils (%) (Auto) 0.7 % Neutrophils # (Auto) 3.8 TH/MM3 Lymphocytes # (Auto) 1.8 TH/MM3 Monocytes # (Auto) 0.9 TH/MM3 Eosinophils # (Auto) 0.2 TH/MM3 Basophils # (Auto) 0.0 TH/MM3 CBC Comment DIFF FINAL Differential Comment Sodium Level 142 MEQ/L Potassium Level 4.0 MEQ/L Chloride Level 107 MEQ/L Carbon Dioxide Level 24.6 MEQ/L Anion Gap 10 MEQ/L Blood Urea Nitrogen 18 MG/DL Creatinine 1.67 MG/DL Estimat Glomerular Filtration 50 ML/MIN Rate Random Glucose 171 MG/DL Calcium Level 8.5 MG/DL Total Bilirubin 0.3 MG/DL Aspartate Amino Transf 11 U/L (AST/SGOT) Alanine Aminotransferase 23 U/L (ALT/SGPT) Alkaline Phosphatase 58 U/L Troponin I LESS THAN 0.02 NG/ML Total Protein 7.2 GM/DL Albumin 3.5 GM/DL MDM Medical Decision Making Medical Screen Exam Complete: Yes Emergency Medical Condition: Yes Interpretation(s) My review of EKG: Normal sinus rhythm at a rate of 67, first-degree AV block with a DE interval of 239, left fourth axis, poor R-wave progression, anteroseptal Q waves, lateral T wave inversions. LABS: CBC unremarkable CMP remarkable for mildly elevated creatinine 1.6 Troponin negative Chest x-ray: Negative Differential Diagnosis V. tach, AICD malfunction, myocardial ischemia, other Narrative Course Medical decision making 66-year-old male presents after his AICD fired. He's had 2 episodes in the past 48 hours. His AICD was able to pace amount of 1, and received a shot for the second just prior to arrival. I spoke with Dr. Olson, on-call for Dr. Stew Malik. We'll plan on admission for observation, repeat EP consultation, reassess. Diagnosis Primary Impression: AICD discharge Additional Impression: Cardiomyopathy Qualified Code: I42.9 - Cardiomyopathy, unspecified type Jamal Luevano MD Jun 05, 2016 00:11
[2016-06-05] MEDS ORDERED: SODIUM CHLORIDE 0.9% FLUSH 5 ML FLUSH FLUSH PRN (00:30)
[2016-06-05] MEDS ORDERED: NALOXONE HCL 0.4 MG/ML AMP IV PRN (00:30)
--- NOTE | 2016-06-05 05:35 | HHI.HP ---
[facility] JEREMY Mensah Admission Diagnosis V. tach Diagnoses: (1) AICD discharge (2) Ventricular tachycardia Chief Complaint: AICD fired Travel History International Travel<30 Days: No Contact w/Intl Traveler <30 Da: No History of Present Illness Mr. Gutierrez is a 66-year-old male with a past medical history of coronary artery disease status post stent placement 2 and ischemic cardiomyopathy with an EF of 20% status post pacemaker/AICD placement who presented to the emergency room for evaluation after his pacemaker/AICD fired. He was admitted 06/01/16 after his AICD fired also and was discharged 06/03/16. The patient reports that he was feeling fine prior to the shock and without any recent illness. He denies any dizziness, shortness of breath, chest pain, palpitations prior to the AICD shock. He states that his Amiodarone dose was increased from 200 mg once daily to twice daily recently. Dr. Malik is his outpatient manager report and Dr. Mojica place the AICD. He denies any recent long plane or car rides and denies any calf muscle pain. . Review of Systems Constitutional: DENIES: Fever, Dizziness Respiratory: DENIES: Shortness of breath Cardiovascular: DENIES: Chest pain, Palpitations Musculoskeletal: DENIES: Muscle aches (no calf muscle pain), Stiffness Neurologic: DENIES: Headache, Seizures Past Family Social History Past Medical History CAD s/p stent Hypertension Atrial fibrillation Vtach s/p AICD Past Surgical History Cardiac cath with stent placement x 2 2002 Penile implant AICD replaced 01/09/[address] Mojica . Reported Medications Reported Meds & Active Scripts Active Amiodarone (Amiodarone HCl) 200 Mg Tab 200 Mg PO Q12HR Reported Metoprolol Tartrate 100 Mg Tab 100 Mg PO BID Enalapril (Enalapril Maleate) 5 Mg Tab 5 Mg PO BID Clopidogrel (Clopidogrel Bisulfate) 75 Mg Tab 75 Mg PO DAILY . Allergies: Coded Allergies: No Known Allergies (Unverified , 06/04/16) Active Ordered Medications Current Medications IV Flush (NS Flush) 2 ml UNSCH PRN FLUSH FLUSH AFTER USING IV ACCESS; Start at 00:30 IV Flush (NS Flush) 2 ml BID FLUSH ; Start 06/05/16 at 09:00 Naloxone HCl (Narcan Inj) 0.4 mg UNSCH PRN IV SEE LABEL COMMENTS; Start at 00:30 Amiodarone HCl (Cordarone) 200 mg Q12HR PO ; Start 06/05/16 at 09:00 Clopidogrel Bisulfate (Plavix) 75 mg DAILY PO ; Start 06/05/16 at 09:00 Enalapril Maleate (Vasotec) 5 mg BID PO ; Start 06/05/16 at 09:00 Metoprolol Tartrate (Lopressor) 100 mg BID PO ; Start 06/05/16 at 09:00 . Family History Mother with diabetes mellitus . Social History Tobacco: denies Alcohol: denies Illicit Drugs: denies Lives with his ; able to drive self Physical Exam Vital Signs Vital Signs Date Time Temp Pulse Resp B/P Pulse Ox O2 Delivery O2 Flow Rate FiO2 06/04/16 22:15 67 16 128/74 98 Room Air 06/04/16 22:10 95 16 98 Room Air 06/04/16 22:05 98.9 65 15 134/65 97 Room Air Physical Exam GENERAL: This is a well-nourished, well-developed patient, in no apparent distress but not very communicative and appears somewhat grumpy this morning which is consistent with my encounters with this patient on previous visits. SKIN: No rashes, ecchymoses or lesions. Cool and dry. HEAD: Atraumatic. Normocephalic. EYES: No scleral icterus. No injection or drainage. ENT: Nose without bleeding, purulent drainage. NECK: Trachea midline. No JVD or lymphadenopathy. CARDIOVASCULAR: Regular rate and rhythm without murmurs, gallops, or rubs. RESPIRATORY: Clear to auscultation. Breath sounds equal bilaterally. No wheezes , rales, or rhonchi. GASTROINTESTINAL: Abdomen soft, non-tender, nondistended. No guarding. MUSCULOSKELETAL: Extremities without clubbing, cyanosis, or edema. No calf tenderness. NEUROLOGICAL: Awake and alert. Motor and sensory grossly within normal limits. Normal speech. . Laboratory Laboratory Tests Test 06/04/16 22:23 White Blood Count 6.7 Red Blood Count 4.76 Hemoglobin 14.2 Hematocrit 41.9 Mean Corpuscular Volume 88.1 Mean Corpuscular Hemoglobin 29.8 Mean Corpuscular Hemoglobin 33.8 Concent Red Cell Distribution Width 13.9 Platelet Count 195 Mean Platelet Volume 9.0 Neutrophils (%) (Auto) 56.0 Lymphocytes (%) (Auto) 27.2 Monocytes (%) (Auto) 13.7 Eosinophils (%) (Auto) 2.4 Basophils (%) (Auto) 0.7 Neutrophils # (Auto) 3.8 Lymphocytes # (Auto) 1.8 Monocytes # (Auto) 0.9 Eosinophils # (Auto) 0.2 Basophils # (Auto) 0.0 CBC Comment DIFF FINAL Differential Comment Sodium Level 142 Potassium Level 4.0 Chloride Level 107 Carbon Dioxide Level 24.6 Anion Gap 10 Blood Urea Nitrogen 18 Creatinine 1.67 Estimat Glomerular Filtration 50 Rate Random Glucose 171 Calcium Level 8.5 Total Bilirubin 0.3 Aspartate Amino Transf 11 (AST/SGOT) Alanine Aminotransferase 23 (ALT/SGPT) Alkaline Phosphatase 58 Troponin I LESS THAN 0.02 Total Protein 7.2 Albumin 3.5 Result Diagram: 06/04/16 2223 06/04/16 2223 Imaging Last Impressions Chest X-Ray 06/04/16 0000 Signed Impressions: Service Date/Time: Saturday, June 04, 2016 22:35 - CONCLUSION: No acute disease. Som Gregg MD . Assessment and Plan Problem List: (1) AICD discharge ICD Code: Z45.02 Status: Acute (2) Ventricular tachycardia ICD Code: I47.2 Status: Acute Assessment and Plan Mr. Gutierrez is a 66-year-old male with a past medical history of coronary artery disease status post stent placement 2 and ischemic cardiomyopathy with an EF of 20% status post pacemaker/AICD placement who presented to the emergency room for evaluation after his pacemaker/AICD fired. AICD Discharge Ventricular tachycardia - Medtronic AICD was interrogated in the emergency room and revealed that he was paced out of an irregular rhythm once and then a shock was delivered for a second tachyarrhythmia - Continuous cardiac telemetry to monitor for further arrhythmias - Vital signs every 4 hours - Continue home amiodarone - We'll consult cardiology; patient follows with Dr. Malik as an outpatient Coronary artery disease - Continue home Plavix, enalapril, and metoprolol - Heart healthy diet Written by Lanette Basurto, acting as scribe for Dr. Oconnor on 06/05/16 at 05:35. .The documentation accurately reflects the work performed [id number] by me on 06/05/16 at 0535 Discussed Condition With ER physician and patient . Lanette Basurto Jun 05, 2016 05:35 Jeannine Oconnor MD Jun 05, 2016 08:14
[2016-06-05] MEDS: SODIUM CHLORIDE 0.9% FLUSH 5 ML FLUSH FLUSH SCH ×2 (08:55→20:49)
[2016-06-05] MEDS: CLOPIDOGREL 75 MG TAB PO SCH (09:41)
[2016-06-05] MEDS: METOPROLOL TARTRATE 100 MG TAB PO SCH ×2 (09:42→20:50)
[2016-06-05] MEDS: AMIODARONE 200 MG TAB PO SCH ×2 (09:42→20:50)
[2016-06-05] MEDS: ENALAPRIL MALEATE 5 MG TAB PO SCH ×2 (10:53→20:50)
[2016-06-05] MEDS: ASPIRIN EC 81 MG TABEC PO SCH (10:57)
--- NOTE | 2016-06-05 11:55 | MB ---
cc: VIVIANA PERSTON DATE OF CONSULTATION 06/05/2016 DATE OF 1950 REASON FOR CONSULTATION We will consult V-tach HISTORY OF PRESENT ILLNESS This is a 66-year-old male Ep[employer] with a past medical history significant for ischemic cardiomyopathy with an EF of 20% and recent PCI to mid and proximal LAD in August 26 who presents to the emergency department after having anjum AICD shock. The patient reports he was in his usual state of health until yesterday in the afternoon where all of a sudden he stood up, he felt dizzy. He sat on the couch and all of a sudden the ICD fired. He came into the emergency department where interrogation of the device showed an appropriate AICD response with a successful termination of VT with 35 joules. He denies chest pain, shortness of breath, palpitations, noncompliance with medications, chest trauma or recent upper respiratory infections. His amiodarone dose had been recently increased to 200 mg p.o. b.i.d. which again he has been compliant. Of note, he was admitted on 06/01/2016 for also the same episode of AICD firing. He was discharged two days after with optimization of medical therapy. REVIEW OF SYSTEMS Negative except for what is mentioned in the HPI. PAST MEDICAL HISTORY 1. CAD status post PCI 2. Hypertension 3. Atrial fibrillation 4. V-tach 5. Severe LV systolic dysfunction with an EF of 20% 6. Diabetes type 2 7. Hyperlipidemia PAST SURGICAL HISTORY 1. Penile implant 2. AICD placement 3. PCIs to coronary arteries. MEDICATIONS 1. Amiodarone 200 mg p.o. b.i.d. 2. Plavix 75 mg p.o. daily 3. Enalapril 5 mg p.o. daily 4. Metoprolol 100 mg p.o. b.i.d. 5. Aspirin 81 mg p.o. daily 6. Simvastatin 40 mg p.o. daily ALLERGIES NO KNOWN DRUG ALLERGIES. FAMILY HISTORY Noncontributory SOCIAL HISTORY He is Episcopal. He denies, tobacco, alcohol or illicit drug use. PHYSICAL EXAMINATION VITAL SIGNS: Temperature 98.9, respiratory rate 20, heart rate 60s, blood pressure 145/82, O2 sat 100% on room air. GENERAL: He is awake, alert and oriented x3 in no acute distress. NECK: No JVD or carotid bruits. HEART: Regular rate and rhythm. No murmurs, rubs or gallops appreciated. LUNGS: Clear to auscultation bilaterally. ABDOMEN: Soft, nontender and nondistended with positive bowel sounds. EXTREMITIES: No cyanosis or edema. LABORATORY DATA Hemoglobin 14, hematocrit 41, platelet count 195. Chemistries sodium 142, potassium 4.0, BUN 18, creatinine 1.67 which is high for him. Troponins less than 0.02. Chest x-ray shows no acute cardiopulmonary process. EKG shows sinus rhythm with a first-degree AV block. He had a cath done on August 27, [address] Malik which showed an EF of 20% and two significant lesions in the LAD which were successfully stented with the two drug-eluting stents. ASSESSMENT/PLAN A 56-year-old male with known ischemic cardiomyopathy and severe systolic dysfunction with an EF of 20% status post AICD (Medtronic) who presented to the hospital with an appropriate shock delivered in the setting of VT. He is compliant with his antiarrhythmics, as well as his medications for CAD. He has remained fairly hemodynamically stable. He denies any chest pains. There are no signs of heart failure. This is the second episode that the patient has had in the last week. I think it would be reasonable to do a myocardial perfusion study to further identify any ischemia burden or progression of his CAD.If the myocardial perfusion study shows any signs of progression ischemia, we will consider doing a cardiac catheterization. Otherwise if the stress test is negative for active ischemia, then medications should optimized and add on mexiletine 200mg PO Q8H to his antiarrhythmic therapy. Patient has a appointment in [place] for secondary opinion regarding VT ablation. RECOMMENDATIONS 1. Myocardial perfusion study. 2. Optimization of medical therapy. I have added aspirin 81 as well as a statin. Will continue the amiodarone and the beta-blockers. Mexiletine 200mg PO Q8H 3. He has acute kidney injury, appears to be prerenal. Give some IV hydration. Thank you for the opportunity to take part in the care of this patient. We will follow with you. Case discussed with Dr. Rowe MD STEPHON Palumbo/LALIT /10:52 AM /11:25 AM YONY
[2016-06-05] MEDS: SODIUM CHLOR 0.9% 1000 ML INJ 1,000 ML IV SCH (12:30)
[2016-06-05] MEDS ORDERED: REGADENOSON INJ 0.4 MG/5 ML SYR ONE (15:12)
--- NOTE | 2016-06-05 16:32 | RADRPT ---
EXAM DATE/TIME: 06/05/2016 14:14 [facility] COMPARISON: No previous studies available for comparison. INDICATIONS : AICD shock. Dizziness. Coronary atherosclerosis. DOSE: 26.8 mCi Tc99m Myoview at stress. 8.1 mCi Tc99m Myoview at rest. 0.4 mg Lexiscan STRESS SYMPTOMS: Headache and hot. EJECTION FRACTION: 28% MEDICAL HISTORY : Myocardial infarction. Diabetes mellitus type 2. Hypertension. SURGICAL HISTORY : Coronary artery stent. Pacemaker. ENCOUNTER: Initial ACUITY: 1 day PAIN SCALE: 0/10 LOCATION: chest TECHNIQUE: The patient underwent pharmacologic stress with infusion of prescribed dose. Continuous ECG tracing was monitored during stress. Gated SPECT imaging was performed after stress and conventional SPECT i maging was performed at rest. The examination was performed on a SPECT/CT scanner, both attenuation and non-corrected datasets were reviewed. FINDINGS: DISTRIBUTION: The maximum perfused segment at stress is in the inferior wall. PERFUSION STUDY: The examination demonstrates severe, fixed perfusion involving the septum, the anterior wall and port ions of the lateral wall. The ventricular cavity is dilated. GATED STUDY: The examination demonstrates a global hypokinesis with an ejection fraction of 28%. CONCLUSION: 1. Large, severe, fixed perfusion defects consistent with old areas of infarct as above. 2. Global hypokinesis with ejection fraction of 28%. 3. No reversible perfusion defect identified. RISK CATEGORY: High (>3% Annual Mortality Rate) Amarjit Gutierrez MD on June 05, 2016 at 16:23 Board Certified Radiologist. This report was verified electronically.
[2016-06-05] MEDS: MEXILETINE HCL 200 MG CAP PO SCH ×2 (18:01→20:50)
--- NOTE | 2016-06-05 20:11 | EKG ---
Date Performed: 06/04/2016 Time Performed: 22:11:56 PTAGE: 66 years EKG: Sinus rhythm WITH FIRST DEGREE AV BLOCK POSSIBLE LEFT ATRIAL ENLARGEMENT POSSIBLE RIGHT VENTRICULAR CONDUCTION DE LAY ANTEROSEPTAL MYOCARDIAL INFARCTION There are pacer spikes seen which should not clearly capture w ith Recommended pacemaker interogation. ABNORMAL ECG PREVIOUS TRACING : 06/01/2016 21.03 DOCTOR: Tevin Darling Interpretating Date/Time 06/05/2016 20:11:39
[2016-06-06 00:40] VITALS: BP 112/57; PULSE 65; RESP 20; TEMP 97.7; O2SAT 97
[2016-06-06] MEDS: SODIUM CHLOR 0.9% 1000 ML INJ 1,000 ML IV SCH (01:51)
[2016-06-06 02:11] VITALS: PULSE 60
[2016-06-06 05:08] VITALS: BP 132/83; PULSE 60; RESP 18; TEMP 98; O2SAT 90
[2016-06-06] MEDS: MEXILETINE HCL 200 MG CAP PO SCH ×2 (05:40→14:33)
[2016-06-06] MEDS: ASPIRIN EC 81 MG TABEC PO SCH (08:13)
[2016-06-06] MEDS: SODIUM CHLORIDE 0.9% FLUSH 5 ML FLUSH FLUSH SCH (08:13)
[2016-06-06] MEDS: ENALAPRIL MALEATE 5 MG TAB PO SCH (08:13)
[2016-06-06] MEDS: AMIODARONE 200 MG TAB PO SCH (08:13)
[2016-06-06] MEDS: METOPROLOL TARTRATE 100 MG TAB PO SCH (08:13)
[2016-06-06] MEDS: CLOPIDOGREL 75 MG TAB PO SCH (08:13)
[2016-06-06 08:24] VITALS: BP 119/80; PULSE 60; RESP 18; TEMP 97.9; O2SAT 96
[2016-06-06] MEDS ORDERED: ATORVASTATIN 40 MG TAB PO SCH (09:00)
[2016-06-06 09:10] LABS: BICARBONATE 25.4 MEQ/L (21.0-32.0); MAGNESIUM 2.1 MG/DL (1.5-2.5); POTASSIUM 4.1 MEQ/L (3.5-5.1)
--- NOTE | 2016-06-06 09:10 | HHI.PR ---
Subjective Remarks Follow-up for V. tach and AICD fire. Patient seen with at bedside. Patient denies any further episodes since admission. He denies any chest pain, shortness breath, palpitations. He states that during his episode before AICD fire he felt lightheaded, no further lightheadedness. No complaints at this time. Objective Vitals Vital Signs Date Time Temp Pulse Resp B/P Pulse Ox O2 Delivery O2 Flow Rate FiO2 06/06/16 08:24 97.9 60 18 119/80 96 06/06/16 05:08 98.0 60 18 132/83 90 06/06/16 02:11 60 06/06/16 00:40 97.7 65 20 112/57 97 06/05/16 20:22 98.0 60 22 114/62 98 06/05/16 13:00 58 18 128/78 98 Room Air 06/05/16 12:00 58 18 145/61 99 Room Air 06/05/16 11:00 58 15 141/76 100 Room Air 06/05/16 09:50 59 20 145/82 100 Room Air 06/05/16 09:42 100 Room Air Result Diagram: 06/04/16 2223 06/04/16 2223 Imaging Last Impressions Myocardial Perfusion Scan Nuc Med 06/05/16 0000 Signed Impressions: Service Date/Time: May 14:14 - CONCLUSION: 1. Large, severe, fixed perfusion defects consistent with old areas of infarct as above. 2. Global hypokinesis with ejection fraction of 28%%. 3. No reversible perfusion defect identified. RISK CATEGORY: High (>3%% Annual Mortality Rate) Amarjit Gutierrez MD Chest X-Ray 06/04/16 0000 Signed Impressions: Service Date/Time: Saturday, June 04, 2016 22:35 - CONCLUSION: No acute disease. Som Gregg MD Objective Remarks GENERAL: Well-developed well-nourished. In no acute distress. SKIN: Warm and dry. No lesions noted. HEENT: Normocephalic. Pupils equal and round. Mucous membranes pink and moist. CARDIOVASCULAR: Regular rate and rhythm. No murmur appreciated. RESPIRATORY: No accessory muscle use. Clear to auscultation. Breath sounds equal bilaterally. GASTROINTESTINAL: Abdomen soft, non-tender, nondistended. Bowel sounds x4. MUSCULOSKELETAL: No obvious deformities. No clubbing or cyanosis. No edema. NEUROLOGICAL: Awake and alert. No focal neurological deficits. Moves upper and lower extremities spontaneously. Normal speech. PSYCHIATRIC: Appropriate mood and affect; insight and judgment normal. A/P Problem List: (1) AICD discharge ICD Code: Z45.02 Status: Acute (2) Ventricular tachycardia ICD Code: I47.2 Status: Acute Assessment and Plan Mr. Gutierrez is a 66-year-old male with a past medical history of coronary artery disease status post stent placement 2 and ischemic cardiomyopathy with an EF of 20% status post pacemaker/AICD placement who presented to the emergency room for evaluation after his pacemaker/AICD fired. AICD Discharge/Ventricular tachycardia Medtronic AICD was interrogated in the emergency room and revealed that he was paced out of an irregular rhythm once and then a shock was delivered for a second tachyarrhythmia - Continuous cardiac telemetry to monitor for further arrhythmias - Continue home amiodarone - Cardiology consulted, follows with Dr. Malik, seen by Dr. Green - Cardiology order stress test which showed large fixed perfusion defects consistent with old areas of infarct, but no reversible perfusion defects identified. - Cardiology started the patient on Mexiletine - Check electrolytes today - Follow up cardiology recommendations Coronary artery disease Stress test with old infarcts, nothing new as above. - Continue home Plavix, enalapril, and metoprolol JONNY: Creatinine 1.67, previously 1.1 on 06/03/16. IVF. Follow-up BMP. DVT prophylaxis: SCDs Written by Odin Cedillo, acting as scribe for Dr. Petty on 06/06/16 at 09:09. The documentation accurately reflects the work performed [id number] by il Dr. Petty on 06/06/16 at 09:09. Discharge Planning Disposition pending cardiology recommendations. Odin Cedillo Jun 06, 2016 09:10 Janee Petty MD Jun 06, 2016 13:34
[2016-06-06 12:20] VITALS: BP 116/68; PULSE 60; RESP 18; O2SAT 96
--- NOTE | 2016-06-06 13:17 | PD.CARD.PN ---
Subjective Subjective Remarks no complaints Objective Medications Current Medications Medications (Trade) Dose Ordered Sig/Trang Route Start Time Stop Time Status Last Admin (NS Flush) 2 ml UNSCH PRN FLUSH 06/05/16 00:30 (NS Flush) 2 ml BID FLUSH 06/05/16 09:00 06/05/16 20:49 (Narcan Inj) 0.4 mg UNSCH PRN IV 06/05/16 00:30 (Cordarone) 200 mg Q12HR PO 06/05/16 09:00 06/06/16 08:13 (Plavix) 75 mg DAILY PO 06/05/16 09:00 06/06/16 08:13 (Vasotec) 5 mg BID PO 06/05/16 09:00 06/06/16 08:13 (Lopressor) 100 mg BID PO 06/05/16 09:00 06/06/16 08:13 (Ecotrin Ec) 81 mg DAILY PO 06/05/16 10:30 06/06/16 08:13 (Lipitor) 40 mg DAILY PO 06/06/16 09:00 06/06/16 08:13 (Mexitil) 200 mg Q8HR PO 06/05/16 17:15 06/06/16 05:40 Vital Signs / I&O Vital Signs Date Time Temp Pulse Resp B/P Pulse Ox O2 Delivery O2 Flow Rate FiO2 06/06/16 12:20 60 18 116/68 96 06/06/16 08:24 97.9 60 18 119/80 96 06/06/16 05:08 98.0 60 18 132/83 90 06/06/16 02:11 60 06/06/16 00:40 97.7 65 20 112/57 97 06/05/16 20:22 98.0 60 22 114/62 98 Physical Exam GENERAL: Well-nourished, well-developed patient. SKIN: Warm and dry. HEAD: Normocephalic. EYES: No scleral icterus. No injection or drainage. NECK: Supple, trachea midline. No JVD or lymphadenopathy. CARDIOVASCULAR: Regular rate and rhythm without murmurs, gallops, or rubs. RESPIRATORY: Breath sounds equal bilaterally. No accessory muscle use. GASTROINTESTINAL: Abdomen soft, non-tender, nondistended. EXTREMITIES: No cyanosis, or edema. NEUROLOGICAL: Awake, alert, and oriented x 3. Non-focal. Laboratory Laboratory Tests Test 06/06/16 08:28 Sodium Level 140 MEQ/L Potassium Level 4.1 MEQ/L Chloride Level 108 MEQ/L Carbon Dioxide Level 25.4 MEQ/L Anion Gap 7 MEQ/L Blood Urea Nitrogen 13 MG/DL Creatinine 1.06 MG/DL Estimat Glomerular Filtration 84 ML/MIN Rate Random Glucose 110 MG/DL Calcium Level 8.6 MG/DL Magnesium Level 2.1 MG/DL Assessment and Plan Problem List: (1) Cardiomyopathy Assessment and Plan: Ischemic CMP Hemodynamically stable,chest pain free Non reversible defects on MPI. Old infarcts. No need to pursue invasive cardiac work up Started on Mexiletine If he continues doing well with medications, he can be discharge home with follow up with primary healthcare economics consultant (2) CAD (coronary artery disease) (3) CHF (congestive heart failure) (4) HTN (hypertension) (5) DM (diabetes mellitus) (6) Ventricular tachycardia Problem Qualifiers (1) Cardiomyopathy: Qualified Code: I42.9 - Cardiomyopathy, unspecified type Roberto Oliveira MD Jun 06, 2016 13:17
[2016-06-06] MEDS ORDERED: MEXI200 PO (14:08)
[2016-06-06] MEDS ORDERED: ASPI81TA11 PO (14:08)
== END 2016-06-06 17:03 | disposition home or self-care (01) ==
LOC: NEPE 21:56 → NEDA 06-05 00:27 → NEDH 06-05 04:40 → UNDODISOB 06-05 15:45 → NEPGCP 06-05 17:06
PROVIDERS: ADMIT Hospitalist; ATTEND Hospitalist
DX: I25.5 Ischemic cardiomyopathy (principal); I47.2 Ventricular tachycardia; I48.91 Unspecified atrial fibrillation; I50.9 Heart failure, unspecified; I25.10 Atherosclerotic heart disease of native coronary artery without angina pectoris; I10 Essential (primary) hypertension; E78.5 Hyperlipidemia, unspecified; E11.9 Type 2 diabetes mellitus without complications; Z95.0 Presence of cardiac pacemaker; Z95.5 Presence of coronary angioplasty implant and graft
CPT/HCPCS: 71010; 78452; 80048; 80053; 83735; 84484; 85025; 93005; 93017; 99285; A9502; G0378; J2785; J7030